=== PATIENT | female | born 1990 | race Caucasian/White ===

== ENCOUNTER 2021-03-24 22:20 | Emergency (ER) | payer BC, OTHER ==
[~2021-03-24] VITALS: Ht 165.1 cm; Wt 81.6 kg
[2021-03-24 22:20] VITALS: BP 133/82
[2021-03-24] MEDS ORDERED: TDAP [DIPH/PERTUSSIS/TET] 0.5 ML VIAL IM ONE ×2 (22:30→22:54)
[2021-03-24] MEDS ORDERED: LIDOCAINE 2%-EPI 1:100,000 30 ML VIAL ONE (22:41)
--- NOTE | 2021-03-24 23:32 | NUR ---
Patient discharged to home in stable condition. Written and verbal after care instructions given. Patient verbalizes understanding of instruction.
== END 2021-03-24 23:33 | disposition home or self-care (01) ==
LOC: ER 22:20
DX: S61.412A Laceration without foreign body of left hand, initial encounter (principal); W26.0XXA Contact with knife, initial encounter; Y93.89 Activity, other specified; Y92.89 Other specified places as the place of occurrence of the external cause; Y99.8 Other external cause status
CPT/HCPCS: 12001; 90471; 90715; 99283; A6403; J3490

== ENCOUNTER 2021-04-01 11:14 | Emergency (ER) | payer OTHER ==
[~2021-04-01] VITALS: Ht 165.1 cm; Wt 81.6 kg
[2021-04-01 11:19] VITALS: BP 115/64
--- NOTE | 2021-04-01 11:20 | NUR ---
The patient presented to left hand suture removal. No bleeding noted.
--- NOTE | 2021-04-01 11:55 | NUR ---
Patient discharged to home in stable condition. Written and verbal after care instructions given. Patient verbalizes understanding of instruction.
== END 2021-04-01 11:57 | disposition home or self-care (01) ==
LOC: ER 11:16
DX: S61.412D Laceration without foreign body of left hand, subsequent encounter (principal); X58.XXXD Exposure to other specified factors, subsequent encounter

== ENCOUNTER 2022-04-07 10:06 | Emergency (ER) | payer OTHER ==
[~2022-04-07] VITALS: Ht 165.1 cm; Wt 81.6 kg
[2022-04-07 10:19] VITALS: BP 114/60
--- NOTE | 2022-04-07 10:24 | NUR ---
TO ER BED 1,SPEAKING FULL SENTENCES,NAD NOTED,AWAITING MD [email or web address]
[2022-04-07] MEDS ORDERED: IBUP-1955 PO (10:52)
--- NOTE | 2022-04-07 11:22 | NUR ---
Patient discharged to home in stable condition. Written and verbal after care instructions given. Patient verbalizes understanding of instruction.
[2022-04-08] MEDS ORDERED: PRED20TA PO (16:07)
== END 2022-04-07 11:22 | disposition home or self-care (01) ==
LOC: ER 10:08
DX: L71.0 Perioral dermatitis (principal); Z90.89 Acquired absence of other organs; Z60.2 Problems related to living alone

== ENCOUNTER 2022-04-08 15:22 | Emergency (ER) | payer OTHER ==
[~2022-04-08] VITALS: Ht 165.1 cm; Wt 81.6 kg
[~2022-04-08 15:22] MED LIST: IBUP-1955 PO
[2022-04-08 15:40] VITALS: BP 106/70
[2022-04-08] MEDS ORDERED: PRED20TA PO (16:07)
== END 2022-04-08 16:12 | disposition home or self-care (01) ==
LOC: ER 15:23
DX: H05.223 Edema of bilateral orbit (principal); Z90.89 Acquired absence of other organs; Z60.2 Problems related to living alone; Z79.1 Long term (current) use of non-steroidal anti-inflammatories (NSAID)

== ENCOUNTER 2024-04-21 07:08 | Emergency (ER) | payer BC, OTHER ==
[~2024-04-21] VITALS: Ht 167.6 cm; Wt 100.7 kg
[~2024-04-21 07:08] MED LIST changes: +PRED20TA PO
[2024-04-21] MEDS ORDERED: ONDANSETRON HCL/PF 4 MG/2 ML VIAL ONE (07:28)
[2024-04-21] MEDS: IV NS 0.9% 1,000 ML BAG IV ONE (07:30)
[2024-04-21] MEDS: ONDANSETRON HCL/PF 4 MG/2 ML VIAL IVP ONE (07:30)
[2024-04-21] MEDS ORDERED: METO-295 PO (07:44)
[2024-04-21 07:52] LABS: BASOPHILS % (AUTO) 0.1 % (0.0-2.0); EOSINOPHILS # (AUTO) 0.1 K/uL (0.0-0.7); EOSINOPHILS % (AUTO) 0.5 % (0.0-6.0); HEMATOCRIT 43 % (33-45); HEMOGLOBIN 14.3 g/dL (11.5-14.8); LYMPHOCYTES # (AUTO) 0.6 K/uL (0.8-4.8); LYMPHOCYTES % (AUTO) 4.8 % (20.0-44.0); MEAN CORPUSCULAR HEMOGLOBIN 31 PG (26.0-33.0); MEAN CORPUSCULAR HGB CONC 34 g/dl (31.0-36.0); MEAN CORPUSCULAR VOLUME 91 fL (82-100); MONOCYTES # (AUTO) 0.5 K/uL (0.1-1.30); MONOCYTES % (AUTO) 4.2 % (2.0-12.0); NEUTROPHILS # (AUTO) 10.8 K/uL (1.8-8.9); NEUTROPHILS % (AUTO) 90.4 % (43.0-81.0); PLATELET COUNT (AUTO) 235 K/uL (150-450); RED BLOOD CELL COUNT(AUTO) 4.67 MIL/uL (4.0-5.2); RED CELL DISTRIBUTION WIDTH 13.4 % (11.5-15.0)
[2024-04-21] MEDS ORDERED: LIDOCAINE VISCOUS 2% UD 15 ML UDC ONE (07:56)
[2024-04-21] MEDS ORDERED: MAG HYDROX/AL HYDROX/SIMETH 30 ML UDC ONE (07:56)
[2024-04-21] MEDS: LIDOCAINE VISCOUS 2% UD 15 ML UDC MM ONE (08:00)
[2024-04-21] MEDS: MAG HYDROX/AL HYDROX/SIMETH 30 ML UDC PO ONE (08:00)
[2024-04-21 08:02] LABS: APPEARANCE,URINE CLEAR (CLEAR); BILIRUBIN,URINE 1+ (NEGATIVE); BLOOD, URINE NEGATIVE Ery/uL (NEGATIVE); COLOR,URINE DARK YELLOW (YELLOW); KETONES,URINE 3+ mg/dL (NEGATIVE); LEUKOCYTE ESTERASE ,URINE NEGATIVE (NEGATIVE); NITRITE, URINE NEGATIVE (NEGATIVE); PH,URINE 5.5 (5.0-8.0); PROTEIN,URINE TRACE mg/dl (NEGATIVE); UGLUCOSE NEGATIVE (NEGATIVE); UROBILINOGEN,URINE 0.2 EU/dL (0.2)
[2024-04-21 08:18] LABS: ALBUMIN 2.7 g/dL (3.4-5.0); BILIRUBIN,DIRECT 0.1 mg/dL (0.0-0.2); BILIRUBIN,TOTAL 0.5 mg/dL (0.2-1.0); CALCIUM, SERUM 8.4 mg/dL (8.5-10.1); CREATININE 0.6 mg/dL (0.6-1.3); POTASSIUM 3.7 mmol/L (3.5-5.1); TOTAL PROTEIN, SERUM 6.8 g/dL (6.4-8.2)
[2024-04-21 08:29] LABS: ADD URINE CULTURE NO; BACTERIA,URINE 1+ /HPF (None Seen); RBC,URINE 0-2 /HPF (0-2)
[2024-04-21 08:30] LABS: MUCUS,URINE Rare /LPF (None Seen)
[2024-04-21] MEDS ORDERED: METOCLOPRAMIDE HCL 10 MG TABLET ONE (10:06)
[2024-04-21] MEDS: METOCLOPRAMIDE HCL 10 MG TABLET PO ONE (10:08)
[2024-04-21 10:22] VITALS: BP 127/66; TEMP 98; O2SAT 99
== END 2024-04-21 10:23 | disposition home or self-care (01) ==
LOC: ER 07:32
DX: O26.893 Other specified pregnancy related conditions, third trimester (principal); R11.2 Nausea with vomiting, unspecified; R10.13 Epigastric pain; R10.2 Pelvic and perineal pain; Z90.49 Acquired absence of other specified parts of digestive tract; Z79.899 Other long term (current) drug therapy; Z79.1 Long term (current) use of non-steroidal anti-inflammatories (NSAID); Z60.2 Problems related to living alone
CPT/HCPCS: 99285; 96374; 76805; 96361; 85025; 80048; 83690; 80076; 81001; 36415; 84702; J8597; J2405; J7030